=== PATIENT | male | born 1995 | race Hispanic/Latino ===

== ENCOUNTER 2017-01-30 04:01 | Emergency (ER) | payer SELFPAY ==
[2017-01-30 04:20] VITALS: RESP 18
--- NOTE | 2017-01-30 04:21 | ED PDOC ---
Arrival/HPI - General Time Seen by Provider: 01/30/17 04:05 Historian: Patient - History of Present Illness Narrative History of Present Illness (Text): 01/30/17 04:16 Sam Gale is a 21 year old male, whose past medical history includes depression, who presents to the emergency department for suicidal ideation tonight. Patient states "hit rock bottom" and has been feeling depressed recently. Patient reports he has been experiencing suicidal ideation and notes this is not the first time he has considered harming himself. Patient states he is not on any anti-depressants currently. Patient denies any homicidal ideation , fever, chills, chest pain, shortness of breath, abdominal pain, nausea, vomiting, diarrhea, urinary symptoms, back pain, neck pain, headache, dizziness , or any other complaints. Symptom Onset: Gradual Symptom Course: Unchanged Activities at Onset: Rest, Light Context: Home Past Medical History - Provider Review Nursing Documentation Reviewed: Yes Family/Social History - Physician Review Nursing Documentation Reviewed: Yes Family/Social History: No Known Family HX Allergies/Home Meds Allergies/Adverse Reactions: Allergies No Known Allergies Allergy (Verified 01/30/17 04:16) Review of Systems - Physician Review All systems were reviewed & negative as marked: Yes - Review of Systems Constitutional: Normal. absent: Fevers Eyes: Normal ENT: Normal Respiratory: Normal. absent: SOB, Cough Cardiovascular: Normal. absent: Chest Pain Gastrointestinal: Normal. absent: Abdominal Pain, Diarrhea, Nausea, Vomiting Genitourinary Male: Normal. absent: Dysuria, Frequency, Hematuria, Urinary Output Changes Musculoskeletal: Normal. absent: Back Pain, Neck Pain Skin: Normal. absent: Rash Neurological: Normal. absent: Headache, Dizziness Endocrine: Normal Hemo/Lymphatic: Normal Psychiatric: Depression, Suicidal Ideation Physical Exam Vital Signs Reviewed: Yes Vital Signs Temp Pulse Resp BP Pulse Ox 01/30/17 04:02 98.3 F 72 18 169/81 H 98 Temperature: Afebrile Blood Pressure: Normal Pulse: Regular Respiratory Rate: Normal Appearance: Positive for: Well-Appearing, Non-Toxic, Comfortable Pain Distress: None Mental Status: Positive for: Alert and Oriented X 3 - Systems Exam Head: Present: Atraumatic, Normocephalic Pupils: Present: PERRL Extroacular Muscles: Present: EOMI Conjunctiva: Present: Normal Mouth: Present: Moist Mucous Membranes Neck: Present: Normal Range of Motion Respiratory/Chest: Present: Clear to Auscultation, Good Air Exchange. No: Respiratory Distress, Accessory Muscle Use Cardiovascular: Present: Regular Rate and Rhythm, Normal S1, S2. No: Murmurs Abdomen: Present: Normal Bowel Sounds. No: Tenderness, Distention, Peritoneal Signs Back: Present: Normal Inspection Upper Extremity: Present: Normal Inspection. No: Cyanosis, Edema Lower Extremity: Present: Normal Inspection. No: Edema Neurological: Present: GCS=15, CN II-XII Intact, Speech Normal Skin: Present: Warm, Dry, Normal Color. No: Rashes Psychiatric: Present: Alert, Oriented x 3, Normal Insight, Normal Concentration. No: Normal Affect (Flat affect) Medical Decision Making ED Course and Treatment: 01/30/17 04:16 Impression: 21 year old male complaining of suicidal ideation and depression. Plan: -- EKG -- CXR -- Labs, alcohol level -- Urinalysis, urine drug screen - Reassess and disposition Progress Notes: 01/30/17 04:33 Pt refusing CXR. 01/30/17 04:52 Reviewed EKG, NSR at [address]-segment elevations or depressions, no T-wave inversions, normal intervals. 01/30/17 07:[address] Deleon, pending PES evaluation, re-assessment, and final disposition. - Lab Interpretations Lab Results: 01/30/17 05:12 01/30/17 05:12 Lab Results 01/30/17 05:12: Alcohol, Quantitative 100 H 01/30/17 05:12: Salicylates < 1 L, Acetaminophen < 10.0 L 01/30/17 05:12: Sodium 142, Potassium 3.3 L, Chloride 108, Carbon Dioxide 22, Anion Gap 15, BUN 11, Creatinine 0.9, Est GFR ( Amer) > 60, Est GFR (Non- Af Amer) > 60, Random Glucose 86, Calcium 8.8, Total Bilirubin 1.2, AST 22, ALT 35, Alkaline Phosphatase 50, Total Protein 7.0, Albumin 4.4, Globulin 2.6, Albumin/Globulin Ratio 1.7 01/30/17 05:12: WBC 7.5, RBC 5.17, Hgb 15.4, Hct 43.6, MCV 84.3, MCH 29.8, MCHC 35.3, RDW 13.5, Plt Count 133, MPV 11.9 H, Gran % 52.9, Lymph % (Auto) 35.1 H, [place] % (Auto) 8.3 H, Eos % (Auto) 2.9, Baso % (Auto) 0.8, Gran # 3.97, Lymph # 2.6, [place] # 0.6, Eos # 0.2, Baso # 0.06 01/30/17 04:34: Urine Color Yellow, Urine Appearance Clear, Urine pH 6.5, Ur Specific [place] 1.010, Urine Protein Negative, Urine Glucose (UA) Negative, Urine Ketones Negative, Urine Blood Negative, Urine Nitrate Negative, Urine Bilirubin Negative, Urine Urobilinogen 0.2, Ur Leukocyte Esterase Negative 01/30/17 04:34: Urine Opiates Screen Negative, Urine Methadone Screen Negative, Ur Barbiturates Screen Negative, Ur Phencyclidine Scrn Negative, Ur Amphetamines Screen Negative, U Benzodiazepines Scrn Negative, U Oth Cocaine Metabols Negative, U Cannabinoids Screen Negative I have reviewed the lab results: Yes - RAD Interpretation Manager Terminal: ED Physician - EKG Interpretation Interpreted by ED Physician: Yes Type: 12 lead EKG - Medication Orders Current Medication Orders: Discontinued Medications Potassium Chloride (K-Dur 20 Meq Er Tab) 20 meq PO STAT STA Stop: 01/30/17 05:58 Last Admin: 01/30/17 06:24 Dose: 20 meq - Scribe Statement The provider has reviewed the documentation as recorded by the Aguilar Patrick Provider Attestation: All medical record entries made by the Aguilar were at my direction and personally dictated by me. I have reviewed the chart and agree that the record accurately reflects my personal performance of the history, physical exam, medical decision making, and the department course for this patient. I have also personally directed, reviewed, and agree with the discharge instructions and disposition. Disposition/Present on Arrival - Present on Arrival Any Indicators Present on Arrival: No - Disposition Have Diagnosis and Disposition been Completed?: No Diagnosis: Depression Disposition Time: 07:00 Condition: STABLE
[2017-01-30 05:18] LABS: ADD MANUAL DIFF? NO
[2017-01-30 05:31] LABS: BASO # 0.06 K/mm3 (0.0-2.0); BASO % 0.8 % (0.0-3.0); EOS # 0.2 (0.0-0.7); EOS % 2.9 % (1.5-5.0); GRAN # 3.97 (1.4-6.5); GRAN % 52.9 % (50.0-68.0); HEMATOCRIT 43.6 % (42.0-52.0); LYMPH # 2.6 (1.2-3.4); LYMPH % 35.1 % (22.0-35.0); MEAN CELL VOLUME 84.3 fL (80.0-105.0); MEAN CORPUSCULAR HEMOGLOBIN 29.8 pg (25.0-35.0); MEAN CORPUSCULAR HGB CONC 35.3 g/dl (31.0-37.0); MEAN PLATELET VOLUME 11.9 fl (7.0-11.0); MONO # 0.6 (0.1-0.6); MONO % 8.3 % (1.0-6.0); PLATELET COUNT 133 10^3/uL (120.0-450.0); RED CELL DISTRIBUTION WIDTH 13.5 % (11.5-14.5); WHITE BLOOD COUNT 7.5 10^3/ul (4.5-11.0)
[2017-01-30 05:46] LABS: ALB/GLOB RATIO 1.7 (1.1-1.8); ALKALINE PHOSPHATASE 50 U/L (38-133); ALT/SGPT 35 U/L (7-56); AST/SGOT 22 U/L (15-59); BILIRUBIN,TOTAL 1.2 mg/dL (0.2-1.3); BLOOD UREA NITROGEN 11 mg/dL (7-21); CALCIUM 8.8 mg/dL (8.4-10.5); CARBON DIOXIDE 22 mmol/L (21-33); CHLORIDE 108 mmol/L (95-110); GFR AFRICAN-AMERICAN > 60; GLUCOSE,RANDOM 86 mg/dL (70-110); POTASSIUM 3.3 mmol/L (3.6-5.0); SODIUM 142 mmol/L (132-148)
[2017-01-30] MEDS ORDERED: Potassium Chloride 20 mEq ER Tab PO STA (05:57)
[2017-01-30 06:30] LABS: PH,URINE 6.5 (4.7-8.0); URINE BILIRUBIN NEGATIVE (NEGATIVE); URINE BLOOD NEGATIVE (NEGATIVE); URINE GLUCOSE (UA) NEGATIVE (NEGATIVE); URINE KETONE NEGATIVE (NEGATIVE); URINE LEUKOCYTE ESTERASE NEGATIVE Leu/uL (NEGATIVE); URINE PROTEIN NEGATIVE mg/dL (<30 mg/dL); URINE UROBILINOGEN 0.2 E.U./dL (<1 E.U./dL)
[2017-01-30 06:35] LABS: URINE APPEARANCE CLEAR (CLEAR); URINE COLOR YELLOW (YELLOW)
[2017-01-30 07:09] VITALS: BP 132/78; PULSE 67; TEMP 98.1; O2SAT 99
--- NOTE | 2017-01-30 07:22 | ED PDOC ---
Physical Exam Vital Signs Reviewed: Yes Vital Signs Temp Pulse Resp BP Pulse Ox 01/30/17 07:08 98.1 F 67 18 132/78 99 01/30/17 04:02 98.3 F 72 18 169/81 H 98 Temperature: Afebrile Blood Pressure: Normal Pulse: Regular Respiratory Rate: Normal Appearance: Positive for: Well-Appearing, Non-Toxic, Comfortable Pain Distress: None Mental Status: Positive for: Alert and Oriented X 3 Medical Decision Making ED Course and Treatment: 01/30/17 07:00 Case signed out to me from overnight by Dr. Rankin, pending PES evaluation and final disposition. The patient is a 21 year old male who presented to the emergency department earlier this morning for suicidal ideation and feeling depressed. Patient refused Chest X-ray. EKG showed a normal sinus rhythm at 64 BPM. Patient was medical cleared by previous provider and PES was called. 01/30/17 07:20 Patient was evaluated by child welfare social worker, who cleared patient psychiatrically. On re-evaluation, the is in no acute distress. Patient is clinical sober. I have discussed the results and plan with the patient, who expresses understanding. Patient in agreement with plan to discharged home. Patient is stable for discharge. Patient was instructed to follow up with psychiatrist at directed or return if symptoms worsen or new concerning symptoms arise. - Lab Interpretations Lab Results: 01/30/17 05:12 01/30/17 05:12 Lab Results 01/30/17 05:12: Alcohol, Quantitative 100 H 01/30/17 05:12: Salicylates < 1 L, Acetaminophen < 10.0 L 01/30/17 05:12: Sodium 142, Potassium 3.3 L, Chloride 108, Carbon Dioxide 22, Anion Gap 15, BUN 11, Creatinine 0.9, Est GFR ( Amer) > 60, Est GFR (Non- Af Amer) > 60, Random Glucose 86, Calcium 8.8, Total Bilirubin 1.2, AST 22, ALT 35, Alkaline Phosphatase 50, Total Protein 7.0, Albumin 4.4, Globulin 2.6, Albumin/Globulin Ratio 1.7 01/30/17 05:12: WBC 7.5, RBC 5.17, Hgb 15.4, Hct 43.6, MCV 84.3, MCH 29.8, MCHC 35.3, RDW 13.5, Plt Count 133, MPV 11.9 H, Gran % 52.9, Lymph % (Auto) 35.1 H, [place] % (Auto) 8.3 H, Eos % (Auto) 2.9, Baso % (Auto) 0.8, Gran # 3.97, Lymph # 2.6, Major # 0.6, Eos # 0.2, Baso # 0.06 01/30/17 04:34: Urine Color Yellow, Urine Appearance Clear, Urine pH 6.5, Ur Specific [place] 1.010, Urine Protein Negative, Urine Glucose (UA) Negative, Urine Ketones Negative, Urine Blood Negative, Urine Nitrate Negative, Urine Bilirubin Negative, Urine Urobilinogen 0.2, Ur Leukocyte Esterase Negative 01/30/17 04:34: Urine Opiates Screen Negative, Urine Methadone Screen Negative, Ur Barbiturates Screen Negative, Ur Phencyclidine Scrn Negative, Ur Amphetamines Screen Negative, U Benzodiazepines Scrn Negative, U Oth Cocaine Metabols Negative, U Cannabinoids Screen Negative I have reviewed the lab results: Yes - Medication Orders Current Medication Orders: Discontinued Medications Potassium Chloride (K-Dur 20 Meq Er Tab) 20 meq PO STAT STA Stop: 01/30/17 05:58 Last Admin: 01/30/17 06:24 Dose: 20 meq - Scribe Statement The provider has reviewed the documentation as recorded by the Aguilar Howard Provider Scribe Attestation: All medical record entries made by the Scribe were at my direction and personally dictated by me. I have reviewed the chart and agree that the record accurately reflects my personal performance of the history, physical exam, medical decision making, and the department course for this patient. I have also personally directed, reviewed, and agree with the discharge instructions and disposition. Disposition/Present on Arrival - Present on Arrival Any Indicators Present on Arrival: No History of DVT/PE: No History of Uncontrolled Diabetes: No Urinary Catheter: No History of Decub. Ulcer: No History Surgical Site Infection Following: None - Disposition Have Diagnosis and Disposition been Completed?: Yes Diagnosis: Depression Disposition: HOME/ ROUTINE Disposition Time: 07:20 Patient Problems: Current Active Problems Problem Status Onset Depression Acute Condition: IMPROVED Discharge Instructions (ExitCare): Bipolar Disorder (ED) Additional Instructions: Ms Gale, thank you for letting us take care of you today. Your provider was Dr. Deleon and Dr. Rankin. You were treated for Psych. The emergency medical care you received today was directed at your acute symptoms. If you were prescribed any medication, please fill it and take as directed. It may take several days for your symptoms to resolve. Return to the Emergency Department if your symptoms worsen, do not improve, or if you have any other problems. Please contact your doctor or call one of the physicians/clinics you have been referred to that are listed on the Patient Visit Information form that is included in your discharge packet. Bring any paperwork you were given at discharge with you along with any medications you are taking to your follow up visit. Our treatment cannot replace ongoing medical care by a primary care provider (PCP) outside of the emergency department. Thank you for allowing the [email or web address] team to be part of your care today. If you had an X-Ray or CT scan: A Radiologist will review the ED reading if any change in treatment is needed we will contact you. If you had a blood, urine, or wound culture: It will take several days for the results, if any change in treatment is needed we will contact you. If you had an STI test: It will take 48 hours for the results. Please call after 1 week if you have not heard back. Referrals: [facility] [Outside] - Follow up with primary [facility] at [facility] [Outside] - Follow up with primary PCP,NO [Primary Care Provider] - Follow up with primary Forms: WORK NOTE
--- NOTE | 2017-01-30 15:34 | CARD ---
APPROVED REPORT EKG Measurement Heart [id number] <Conclusion> Normal sinus rhythm Normal ECG
== END 2017-01-30 07:26 | disposition home or self-care (01) ==
LOC: ED 04:01
DX: F32.9 Major depressive disorder, single episode, unspecified (principal)
CPT/HCPCS: 80053; 81003; 85025; 90791; 93005; 99284; G0480